=== PATIENT | female | born 1940 | race Caucasian/White ===

== ENCOUNTER → 2016-11-07 | Outpatient (CLI) | payer MEDICARE, BC ==
[~2016-11-07] MED LIST: ACIDOPHILUS PO; AMOXICILLIN 8751 TAB PO; ASPIRIN 32325 MG/TAB PO; ASPRIN; CALCIUM 600/VIT1 CA1 PO; CALCIUM CITRATE PO; CALCIUM CITRATE1 TA4 PO; CALCIUM CITRATE1 TA7 PO; CALCIUM WITH D1 CTB PO; CIPRO 500MG TA500 MG PO; CITRACAL + D 311 TAB PO; COZAAR 50MG50 MG/TAB PO; DIOVAN80 MG PO; GLUCOPHAGE500 MG/TAB PO; HCTZ12.5TAB PO; LEVAQUIN 5500 MG/TA1 PO; METFORMIN500 MG PO; NORCO 325 MG-51 TAB PO; NORVASC 10MG10 MG PO; OMEGA 31000 MG PO; OMEGA-3 1000 MG1 CAP PO; OMEGA-3 FISH1200 MG PO; PERCOCET 325 MG1 TA2 PO; PRAVACHOL 20MG20 MG PO; PRAVACHOL80 MG PO; PRILOSEC 20MG20 MG PO; TOPROL XL 25MG25 MG PO; ZESTRIL40 MG PO; ZOCOR 80MG80 MG PO; [UNRECOGNIZED DRUG - OTHER] PO
== END ==
LOC: MC.RAD 10:08
DX: Z12.31 Encounter for screening mammogram for malignant neoplasm of breast (principal); D24.1 Benign neoplasm of right breast; Z85.3 Personal history of malignant neoplasm of breast

== ENCOUNTER 2017-01-07 15:37 | Observation (INO) | payer MEDICARE, BC ==
[~2017-01-07] VITALS: Ht 160 cm; Wt 61.2 kg
[2017-01-07] VITALS (162 sets, daily range): BP systolic 184; BP diastolic 95; PULSE 67; TEMP 97.9; O2SAT 97–100
[~2017-01-07 15:37] MED LIST changes: -CALCIUM CITRATE1 TA4 PO; -CALCIUM CITRATE1 TA7 PO; -HCTZ12.5TAB PO; -NORVASC 10MG10 MG PO; -OMEGA-3 1000 MG1 CAP PO; -PRAVACHOL 20MG20 MG PO; -TOPROL XL 25MG25 MG PO; -ZESTRIL40 MG PO
[2017-01-07 16:18] LABS: BASO % 0.4 % (0.0-2.0); EOS # 0.2 (0.0-0.7); EOS % 1.8 % (0-4.0); GRAN # 6.3 (1.4-6.5); GRAN % 57.8 % (42.2-75.2); HEMATOCRIT 39.2 % (37.0-47.0); LYMPH # 3.5 (1.2-3.4); LYMPH % 31.7 % (20.0-51.0); MEAN CELL VOLUME 87 fl (80.0-100.0); MEAN CORPUSCULAR HEMOGLOBIN 29 pg (27.0-31.0); MEAN CORPUSCULAR HGB CONC 33 g/dl (33.0-37.0); MONO # 0.8 (0.1-0.6); MONO % 7.4 % (1.7-9.3); PLATELET COUNT 265 K/mm3 (130-400); RED BLOOD COUNT 4.53 M/mm3 (4.10-5.30); REDCELL DISTRIBUTION WIDTH-CV 13.2 % (11.5-14.5); WHITE BLOOD COUNT 10.9 K/mm3 (4.8-10.8)
[2017-01-07 16:28] LABS: ADJUSTED CALCIUM 9.4 mg/dL (8.4-10.2); ALANINE AMINOTRANSFERASE 40 U/L (9-52); ALBUMIN 4.4 gm/dL (3.5-5.0); ALKALINE PHOSPHATASE 59 U/L (50-136); ANION GAP 15 mmol/L (7-16); BILIRUBIN,TOTAL 0.7 mg/dL (0.0-1.0); BLOOD UREA NITROGEN 27 mg/dL (7-17); CALCIUM 9.7 mg/dL (8.4-10.2); CARBON DIOXIDE 22 mmol/L (22-30); CHLORIDE 102 mmol/L (98-107); CREATININE, serum 0.63 mg/dL (0.52-1.25); GLUCOSE 172 mg/dL (74-106); LIPASE 34 U/L (23-300); POTASSIUM 4.2 mmol/L (3.4-5.0); SODIUM 139 mmol/L (137-145); TOTAL PROTEIN 7.8 gm/dL (6.4-8.2)
[2017-01-07 16:39] LABS: B-TYPE NATRIURETIC PEPTIDE 250 pg/mL (0-450)
[2017-01-07 16:46] LABS: TROPONIN-I < 0.012 ng/mL (0.000-0.034)
[2017-01-07] MEDS ORDERED: CALCIUM CITRATE1 TA7 PO (20:54)
[2017-01-07] MEDS ORDERED: OMEGA-3 1000 MG1 CAP PO (20:55)
[2017-01-07] MEDS ORDERED: CALCIUM CITRATE1 TA4 PO (20:57)
[2017-01-08] VITALS (977 sets, daily range): BP systolic 122–187; BP diastolic 57–88; PULSE 54–85; TEMP 97.4–98; O2SAT 90–100
[2017-01-08 05:48] LABS: ANION GAP 11 mmol/L (7-16); BLOOD UREA NITROGEN 19 mg/dL (7-17); CALCIUM 9.3 mg/dL (8.4-10.2); CARBON DIOXIDE 27 mmol/L (22-30); CHLORIDE 102 mmol/L (98-107); CHOLESTEROL 177 mg/dL (120-200); GLUCOSE 143 mg/dL (74-106); HDL CHOLESTEROL 44 mg/dL; LDL CHOLESTEROL 111 mg/dL; POTASSIUM 4.2 mmol/L (3.4-5.0); SODIUM 141 mmol/L (137-145); TRIGLYCERIDE 109 mg/dL
[2017-01-08 06:03] LABS: TROPONIN-I < 0.012 ng/mL (0.000-0.034)
[2017-01-09] VITALS (378 sets, daily range): BP systolic 102–153; BP diastolic 51–72; PULSE 56–78; TEMP 97.3–98.5; O2SAT 92–100
[2017-01-09 05:58] LABS: BASO % 0.4 % (0.0-2.0); EOS # 0.2 (0.0-0.7); EOS % 1.8 % (0-4.0); GRAN # 6.4 (1.4-6.5); GRAN % 63.9 % (42.2-75.2); HEMATOCRIT 37.4 % (37.0-47.0); HEMOGLOBIN 12.6 g/dl (12.5-16.0); LYMPH # 2.7 (1.2-3.4); LYMPH % 26.8 % (20.0-51.0); MEAN CELL VOLUME 87 fl (80.0-100.0); MEAN CORPUSCULAR HEMOGLOBIN 29 pg (27.0-31.0); MEAN CORPUSCULAR HGB CONC 34 g/dl (33.0-37.0); MEAN PLATELET VOLUME 8.8 fl (7.4-10.4); MONO # 0.7 (0.1-0.6); MONO % 6.5 % (1.7-9.3); PLATELET COUNT 235 K/mm3 (130-400); RED BLOOD COUNT 4.31 M/mm3 (4.10-5.30); REDCELL DISTRIBUTION WIDTH-CV 13.4 % (11.5-14.5); WHITE BLOOD COUNT 10.1 K/mm3 (4.8-10.8)
[2017-01-09 06:16] LABS: CALCIUM 8.8 mg/dL (8.4-10.2); CREATININE, serum 0.49 mg/dL (0.52-1.25); POTASSIUM 4.1 mmol/L (3.4-5.0)
[2017-01-09] MEDS ORDERED: NORVASC 10MG10 MG PO (13:05)
[2017-01-09] MEDS ORDERED: TOPROL XL 25MG25 MG PO (13:05)
[2017-01-09] MEDS ORDERED: HCTZ12.5TAB PO (13:13)
[2017-01-09] MEDS ORDERED: ZESTRIL40 MG PO (13:14)
[2017-01-09] MEDS ORDERED: PRAVACHOL 20MG20 MG PO (13:19)
== END 2017-01-09 13:45 | disposition home or self-care (01) ==
LOC: COL.ER 15:37 → ICU 18:13 → COL.ER 18:13 → IMCU 01-08 15:34
PROVIDERS: Emergency Medicine; Family Medicine
DX: R07.9 Chest pain, unspecified (principal); I10 Essential (primary) hypertension; E11.9 Type 2 diabetes mellitus without complications; E78.5 Hyperlipidemia, unspecified; Z87.891 Personal history of nicotine dependence
CPT/HCPCS: 99223-AI; 99233-AI; A9502; G0378; J0360; J1650; J1815; J2270; J2405; J2785; J7030; J7040; J7050; Q9967

== ENCOUNTER → 2017-11-27 | Outpatient (CLI) | payer MEDICARE, BC ==
[~2017-11-27] MED LIST changes: +CALCIUM CITRATE1 TA4 PO; +CALCIUM CITRATE1 TA7 PO; +HCTZ12.5TAB PO; +NORVASC 10MG10 MG PO; +OMEGA-3 1000 MG1 CAP PO; +PRAVACHOL 20MG20 MG PO; +TOPROL XL 25MG25 MG PO; +ZESTRIL40 MG PO
== END ==
LOC: MC.RAD 11-10 10:40
DX: Z12.31 Encounter for screening mammogram for malignant neoplasm of breast (principal); Z98.890 Other specified postprocedural states

== ENCOUNTER → 2018-11-29 | Outpatient (CLI) | payer MEDICARE, BC | LOC: MC.RAD 13:49 | DX: Z12.31 Encounter for screening mammogram for malignant neoplasm of breast (principal) ==

== ENCOUNTER → 2019-12-07 | Outpatient (CLI) | payer MEDICARE, BC | LOC: MC.RAD 11:10 | DX: Z12.31 Encounter for screening mammogram for malignant neoplasm of breast (principal); Z98.890 Other specified postprocedural states ==

== ENCOUNTER → 2021-01-10 | Outpatient (CLI) | payer MEDICARE, BC ==
[~2021-01-10] MED LIST changes: +BENICAR HCT 12.1 TAB PO; +COZAAR 25MG25 MG/TAB PO; +FLAGYL500 MG PO; +JANUMET 1000 MG1 TA1 PO; +MACROBID 1100 MG/CAP PO; +RESTORIL 1515 MG/CAP PO
== END ==
LOC: MC.RAD
DX: Z12.31 Encounter for screening mammogram for malignant neoplasm of breast (principal); Z98.82 Breast implant status; Z98.890 Other specified postprocedural states

== ENCOUNTER → 2021-09-13 | Outpatient (CLI) | payer MEDICARE, BC ==
[2021-09-13 10:51] LABS: COLLECTION METHOD CLEAN CATCH
[2021-09-13 11:34] LABS: BUDDING YEAST Present /hpf; MUCOUS Present /lpf; PH 5 (5-8); SQUAMOUS EPITHELIAL 0-2 /hpf; URINE APPEARANCE Clear; URINE BACTERIA None Seen /hpf; URINE BILIRUBIN Negative (NEGATIVE); URINE BLOOD Negative (NEGATIVE); URINE COLOR Yellow; URINE GLUCOSE 3+ (NEGATIVE); URINE KETONE Negative (NEGATIVE); URINE LEUKOCYTE ESTERASE Trace (NEGATIVE); URINE NITRATE Negative (NEGATIVE); URINE PROTEIN(semi-quant) Negative (NEGATIVE); URINE RBC 0-2 /hpf; URINE UROBILINOGEN Negative (NEGATIVE)
== END ==
LOC: ZCOL.LAB 08:43
PROVIDERS: Family Medicine
DX: N39.0 Urinary tract infection, site not specified (principal)